=== PATIENT | male | born 1995 | race Caucasian/White ===

== ENCOUNTER 2022-08-16 04:16 | Emergency (ER) | payer SELFPAY ==
[~2022-08-16] VITALS: Ht 182.9 cm; Wt 129.3 kg
[2022-08-16 04:30] VITALS: BP_SYST 145
--- NOTE | 2022-08-16 04:30 | NUR ---
Patient to ER bed 7 to gown for evaluation. Side rails up.
[2022-08-16] MEDS ORDERED: PSEU120T57 PO (04:31)
[2022-08-16] MEDS ORDERED: PROM5SYR PO (04:31)
[2022-08-16] MEDS ORDERED: ALBMDI INH (04:31)
[2022-08-16] MEDS ORDERED: GUAI-723 PO (04:31)
[2022-08-16] MEDS ORDERED: BENZ100C92 PO (04:31)
[2022-08-16] MEDS ORDERED: PRED20TA PO (04:31)
[2022-08-16] MEDS ORDERED: TETRACAINE HCL/PF 0.5% OPHTHALMIC DROPS 4 ML OP ONE (04:45)
[2022-08-16] MEDS ORDERED: FLUORESCEIN SODIUM 1 MG OPHTHALMIC STRIP OP ONE (04:45)
--- NOTE | 2022-08-16 04:57 | NUR ---
ER at bedside examining patient.
[2022-08-16] MEDS ORDERED: PROP10DR2 RIGHT EYE (05:09)
--- NOTE | 2022-08-16 05:21 | NUR ---
Patient given written and verbal discharge instructions and verbalizes understanding. ER MD discussed with patient the results and treatment provided. Patient in stable condition. ID arm band removed. Rx of Systane Ultra0.3-0.4% given. Patient educated on pain management and to follow up with PMD. Pain Scale 0/10. Opportunity for questions provided and answered. Medication side effect fact sheet provided.
[2022-08-16 05:29] VITALS: BP_SYST 139
== END 2022-08-16 05:29 | disposition home or self-care (01) ==
LOC: SED 04:16
DX: S05.91XA Unspecified injury of right eye and orbit, initial encounter (principal); I10 Essential (primary) hypertension; Z88.0 Allergy status to penicillin; F17.200 Nicotine dependence, unspecified, uncomplicated; Z79.899 Other long term (current) drug therapy; W26.8XXA Contact with other sharp object(s), not elsewhere classified, initial encounter; Y93.89 Activity, other specified; Y92.89 Other specified places as the place of occurrence of the external cause; Y99.8 Other external cause status
CPT/HCPCS: 99283